=== PATIENT | female | born 1955 | race Two or more races ===

== ENCOUNTER 2019-06-18 18:07 | Emergency (ER) | payer OTHER ==
[~2019-06-18] VITALS: Ht 157.5 cm; Wt 59.9 kg
[~2019-06-18 18:07] MED LIST: SYNTHROID112 MCG
[2019-06-18] MEDS ORDERED: ZOCOR PO (18:49)
== END 2019-06-18 21:43 | disposition home or self-care (01) ==
LOC: ER 18:07
DX: B34.9 Viral infection, unspecified (principal); M79.651 Pain in right thigh; R10.2 Pelvic and perineal pain

== ENCOUNTER 2019-07-08 13:13 | Outpatient (CLI) | payer OTHER ==
[~2019-07-08 13:13] MED LIST changes: +ZOCOR PO
== END 2019-07-08 13:16 | disposition home or self-care (01) ==
LOC: NUCLEAR 13:13
DX: M81.0 Age-related osteoporosis without current pathological fracture (principal); M54.5 Low back pain; Z01.810 Encounter for preprocedural cardiovascular examination; I10 Essential (primary) hypertension; E03.8 Other specified hypothyroidism; E78.49 Other hyperlipidemia; E55.9 Vitamin D deficiency, unspecified; Z12.31 Encounter for screening mammogram for malignant neoplasm of breast; Z12.11 Encounter for screening for malignant neoplasm of colon

== ENCOUNTER 2019-10-06 08:28 | Outpatient (CLI) | payer OTHER | END 2019-10-06 08:31 | disposition home or self-care (01) | LOC: MAMO-SONO 08:28 | DX: M54.5 Low back pain (principal); I10 Essential (primary) hypertension; Z01.810 Encounter for preprocedural cardiovascular examination; E03.8 Other specified hypothyroidism; E78.89 Other lipoprotein metabolism disorders; E55.9 Vitamin D deficiency, unspecified; Z12.31 Encounter for screening mammogram for malignant neoplasm of breast; Z12.11 Encounter for screening for malignant neoplasm of colon ==

== ENCOUNTER 2021-04-18 08:22 | Outpatient (CLI) | payer OTHER | END 2021-04-18 08:38 | disposition home or self-care (01) | LOC: MAMO-SONO 08:22 | PROVIDERS: ATTEND Internal Medicine | DX: R92.0 Mammographic microcalcification found on diagnostic imaging of breast (principal); Z12.31 Encounter for screening mammogram for malignant neoplasm of breast; I10 Essential (primary) hypertension; M54.5 Low back pain; E78.89 Other lipoprotein metabolism disorders; E55.9 Vitamin D deficiency, unspecified; F17.218 Nicotine dependence, cigarettes, with other nicotine-induced disorders; M77.32 Calcaneal spur, left foot ==

== ENCOUNTER 2021-08-02 11:11 | Outpatient (CLI) | payer OTHER | END 2021-08-02 11:16 | disposition home or self-care (01) | LOC: RAD 11:11 | PROVIDERS: ATTEND Internal Medicine | DX: I10 Essential (primary) hypertension (principal); M54.59 Other low back pain; E78.89 Other lipoprotein metabolism disorders; E55.9 Vitamin D deficiency, unspecified; F17.200 Nicotine dependence, unspecified, uncomplicated; F17.218 Nicotine dependence, cigarettes, with other nicotine-induced disorders; M77.32 Calcaneal spur, left foot; D17.1 Benign lipomatous neoplasm of skin and subcutaneous tissue of trunk ==

== ENCOUNTER 2021-10-04 10:31 | Outpatient (CLI) | payer OTHER | END 2021-10-04 10:33 | disposition home or self-care (01) | LOC: NUCLEAR 10:31 | PROVIDERS: ATTEND Internal Medicine | DX: I10 Essential (primary) hypertension (principal); M54.59 Other low back pain; E78.9 Disorder of lipoprotein metabolism, unspecified; E55.9 Vitamin D deficiency, unspecified; Z87.891 Personal history of nicotine dependence; M77.32 Calcaneal spur, left foot; D17.1 Benign lipomatous neoplasm of skin and subcutaneous tissue of trunk ==

== ENCOUNTER 2021-11-22 11:27 | Outpatient (CLI) | payer OTHER | END 2021-11-22 11:35 | disposition home or self-care (01) | LOC: SONOGRAMA 11:27 | PROVIDERS: ATTEND Internal Medicine | DX: Z13.820 Encounter for screening for osteoporosis (principal); I10 Essential (primary) hypertension; M54.50 Low back pain, unspecified; E78.9 Disorder of lipoprotein metabolism, unspecified; E55.9 Vitamin D deficiency, unspecified; F17.200 Nicotine dependence, unspecified, uncomplicated; F17.218 Nicotine dependence, cigarettes, with other nicotine-induced disorders; M77.32 Calcaneal spur, left foot; D17.1 Benign lipomatous neoplasm of skin and subcutaneous tissue of trunk ==

== ENCOUNTER 2021-12-30 10:50 | Outpatient (CLI) | payer OTHER | END 2021-12-30 11:00 | disposition home or self-care (01) | LOC: PPH VACUNA 10:50 | PROVIDERS: ATTEND Emergency Medicine Pediatric Emergency Medicine | DX: Z23 Encounter for immunization (principal) ==

== ENCOUNTER 2022-08-02 11:15 | Outpatient (CLI) | payer OTHER | END 2022-08-02 11:24 | disposition home or self-care (01) | LOC: MAMO-SONO 11:15 | PROVIDERS: ATTEND Internal Medicine | DX: Z12.31 Encounter for screening mammogram for malignant neoplasm of breast (principal); D17.1 Benign lipomatous neoplasm of skin and subcutaneous tissue of trunk ==

== ENCOUNTER 2023-02-26 08:55 | Outpatient (CLI) | payer OTHER | END 2023-02-26 08:59 | disposition home or self-care (01) | LOC: SONOGRAMA 08:55 | PROVIDERS: ATTEND Internal Medicine | DX: M75.01 Adhesive capsulitis of right shoulder (principal) ==

== ENCOUNTER 2024-05-15 07:35 | Emergency (ER) | payer OTHER ==
[~2024-05-15] VITALS: Ht 157.5 cm; Wt 56.7 kg
[2024-05-15] MEDS ORDERED: DEXAMETHASONE SODIUM PHOSPHATE 4 MG/ML VIAL IM STA (08:34)
[2024-05-15] MEDS ORDERED: KETOROLAC TROMETHAMINE 15 MG VIAL IM STA (08:35)
[2024-05-15] MEDS ORDERED: ACETAMINOPHEN 500 MG GEL..CAP PO STA (08:35)
[2024-05-15] MEDS ORDERED: GUAIFENESIN/DEXTROMETHORPHAN 10ML BLIST.PACK PO STA (08:36)
[2024-05-15 09:49] LABS: HEMATOCRIT 41.6 % (36.0-45.00); HEMOGLOBIN 14.2 g/dL (12.0-15.00); MEAN CELL VOLUME 92.9 fL (80.00-100.00); MEAN CORPUSCULAR HEMOGLOBIN 31.8 pg (27.00-32.0); MEAN CORPUSCULAR HGB CONC 34.3 g/dl (32.0-36.0); PLATELET COUNT 265 K/uL (150-450); RED BLOOD COUNT 4.47 M/uL (4.00-6.00)
[2024-05-15 10:37] LABS: CALCIUM 9.3 mg/dL (8.5-10.1); CREATININE SERUM 0.91 mg/dL (0.55-1.02); GFR 61.29; POTASSIUM 4.21 mEq/L (3.5-5.1)
[2024-05-15 10:40] LABS: TSH 0.107 uIU/mL (0.358-3.74)
[2024-05-15] MEDS ORDERED: MUCINEX DM ER1 EAC1 PO (11:11)
[2024-05-15] MEDS ORDERED: LEVALBUTER0.63 MG/3 IH (11:11)
[2024-05-15] MEDS ORDERED: ZYRTEC10 MG PO (11:11)
[2024-05-15] MEDS ORDERED: MEDROLPACK PO (11:11)
[2024-05-15] MEDS ORDERED: ACETAMINOPHEN500 M1 PO (11:11)
[2024-05-15] MEDS ORDERED: ZITHROMAX500 MG PO (11:11)
[2024-05-15 12:00] VITALS: BP 114/78; O2SAT 98
== END 2024-05-15 12:01 | disposition home or self-care (01) ==
LOC: ER 07:37
PROVIDERS: General Practice
DX: R53.81 Other malaise (principal); J40 Bronchitis, not specified as acute or chronic; J06.9 Acute upper respiratory infection, unspecified; Z20.822 Contact with and (suspected) exposure to COVID-19
CPT/HCPCS: 36415; 71046; 96372; 99283; J1100; J1885

== ENCOUNTER 2024-09-22 12:57 | Outpatient (CLI) | payer OTHER ==
[~2024-09-22 12:57] MED LIST changes: +ACETAMINOPHEN500 M1 PO; +LEVALBUTER0.63 MG/3 IH; +MEDROLPACK PO; +MUCINEX DM ER1 EAC1 PO; +ZITHROMAX500 MG PO; +ZYRTEC10 MG PO
== END 2024-09-22 12:58 | disposition home or self-care (01) ==
LOC: NUCLEAR 12:57
PROVIDERS: ATTEND Internal Medicine
DX: M81.0 Age-related osteoporosis without current pathological fracture (principal); Z13.820 Encounter for screening for osteoporosis

== ENCOUNTER 2025-01-27 07:49 | Outpatient (CLI) | payer OTHER | END 2025-01-27 07:56 | disposition home or self-care (01) | LOC: MAMO-SONO 07:49 | PROVIDERS: ATTEND Internal Medicine | DX: N60.09 Solitary cyst of unspecified breast (principal); N60.12 Diffuse cystic mastopathy of left breast; Z12.31 Encounter for screening mammogram for malignant neoplasm of breast; I10 Essential (primary) hypertension; F17.200 Nicotine dependence, unspecified, uncomplicated; Z12.11 Encounter for screening for malignant neoplasm of colon; E03.9 Hypothyroidism, unspecified; E78.9 Disorder of lipoprotein metabolism, unspecified; E55.9 Vitamin D deficiency, unspecified; F17.218 Nicotine dependence, cigarettes, with other nicotine-induced disorders; D23.10 Other benign neoplasm of skin of unspecified eyelid, including canthus; M75.01 Adhesive capsulitis of right shoulder; Z13.820 Encounter for screening for osteoporosis ==